=== PATIENT | female | born 1990 | race Caucasian/White ===

== ENCOUNTER 2017-12-04 09:13 | Emergency (ER) | payer BC ==
[2014-12-15 14:50] VITALS: Wt 80.7 kg
[~2017-12-04 09:13] MED LIST: ACET-2146 PO; ALB6.7R INH; BENZ57AE RC; BUPR-133 PO; BUPR-134 PO; CALC-520 PO; DOC100 PO; ESCI20TA38 PO; FERR-41 PO; IBUP-56 PO; IBUP800T37 PO; LOR5/325 PO; MULT-1032 PO; MULT-1038 PO; NIFE10CA38 PO; PER PO; RANI-375 PO
[2017-12-04 09:21] VITALS: BP 116/84
[2017-12-04] MEDS ORDERED: ARIP10TA4 PO (09:24)
[2017-12-04] MEDS ORDERED: CHOL10005 PO (09:24)
--- NOTE | 2017-12-04 09:28 | ER Report ---
History and Physical Time Seen By MD: 09:27 Hx. of Stated Complaint: SI X 1 WEEK HPI/ROS CHIEF COMPLAINT: Depression and suicidal ideation HISTORY OF PRESENT ILLNESS: Patient is a 27-year-old female with past medical history for depression with suicidal ideation as well as bipolar disorder. Dates that over the past few weeks specifically last 4 days she's had increasing thoughts of suicide. Last evening and came to a head when she was sitting in the [employer] parking lot thinking of buying a bunch of "sleeping pills" and taking them all at once. Patient presents with her today secondary to increasing depression with suicidal ideation and plan. She states that she is currently on Abilify 10 mg however this is not helping with her thoughts of depression and suicide. Patient states that she does not feel safe with herself home and feels as if she requires inpatient admission for suicidal thoughts and depression. Patient had a prior evaluation in 2014 after the delivery of her daughter. She recently gave this past April and is currently breast-feeding her son. REVIEW OF SYSTEMS: Constitutional: No fever, no chills. Eyes: No discharge. ENT: No sore throat. Cardiovascular: No chest pain, no palpitations. Respiratory: No cough, no shortness of breath. Gastrointestinal: No abdominal pain, no vomiting. Genitourinary: No hematuria. Musculoskeletal: No back pain. Skin: No rashes. Neurological: No headache. Psychiatric: Suicidal ideation with plan Allergies: Coded Allergies: pineapple (Verified Allergy, Mild, 12/04/17) tree nut (Verified Allergy, Unknown, 12/04/17) Home Meds Reported Medications Vitamin E Mixed (VITAMIN E) 100 Unit Tablet, PO 12/04/17 Cholecalciferol (Vitamin D3) (VITAMIN D3) 1,000 Unit Tablet, 1200 UNIT PO DAILY, TAB 12/04/17 Multivitamin W/Iron, Minerals (FLINTSTONES COMPLETE) 1 Each Tab.chew, 1 EACH PO DAILY, TAB.CHEW 12/16/14 Discontinued Reported Medications Aripiprazole (ABILIFY) 10 Mg Tablet, 10 MG PO QDAY, TAB 12/04/17 Bupropion Hcl (WELLBUTRIN SR) 100 Mg Tablet.er, 100 MG PO QDAY, TAB 12/16/14 Bupropion Hcl (BUPROPION HCL SR) 100 Mg Tablet.er, 100 MG PO QDAY, TAB 12/15/14 Multivitamin (FLINTSTONES) 1 Each Tab.chew, 1 EACH PO, #1 TAB.CHEW 04/02/13 Discontinued Scripts Ferrous Sulfate (FERROUS SULFATE) 325 Mg Tablet.dr, 1 TAB PO BID, #60 TAB 1 Refill Prov:MELI MALLORY MD 09/19/14 Ibuprofen (IBUPROFEN) 800 Mg Tab, 800 MG PO Q8H PRN for pain, #40 TAB 0 Refills Prov:MELI MALLORY MD 09/19/14 Past Medical/Surgical History Past medical history for depression with suicidal ideation seen by behavioral medicine in 2015. History of 2 prior vaginal deliveries. History of appendectomy. Hx Smoking: No Smoking Status: Never Smoker Exposure to Second Hand Smoke?: No Hx Substance Use Disorder: No Hx Alcohol Use: Yes (occasionaly) Constitutional Vital Sign - Last 24 Hours 12/04/17 09:21 Temp 98.3 Pulse 84 Resp 18 B/P (MAP) 116/84 Pulse Ox 96 O2 Delivery Room Air Physical Exam General/Constitutional: Patient is awake, alert, nontoxic and in no acute respiratory distress. Head: Normocephalic and atraumatic. Eyes: Conjunctival clear, Pupils are equal and reactive to light. Extraocular muscles are intact and symmetrical. Sclera are clear and anicteric. Ears:External canals are clear. Tympanic membranes are clear with normal landmarks and light reflex. Nares: No rhinorrhea or bleeding. Turbinates are pink and moist. Oropharyngeal: Mucous membranes are moist Neck: Supple, no adenopathy. Cardiovascular: Heart is regular rate and rhythm without audible murmurs, rubs or gallops. Pulmonary: Lungs are clear to auscultation bilaterally. There are no wheezes, rales, or rhonchi. Chest rise is symmetrical Abdomen: Soft, nontender, no guarding or peritoneal signs. Extremities: No gross deformities, No peripheral cyanosis. Able to move all 4 extremities. Neuro: Alert and oriented X3, Cranial nerves 2 thru 12 are intact and symmetrical. Patient has normal gait. Skin: No rashes, skin is warm dry and well perfused. Psychiatric: Patient with suicidal ideation and plan. Patient thought process is logical and goal-directed. Patient does not seem to be responding to any internal stimuli. Medical Decision Making Data Points Result Diagram: 12/04/1794412/04/17944 Laboratory Hematology Test 12/04/17 09:45 12/04/17 10:20 Red Blood Count 5.04 M/uL (4.17-5.56) Mean Corpuscular Volume 84.1 fL (80.0-96.0) Mean Corpuscular Hemoglobin 28.0 pg (26.0-33.0) Mean Corpuscular Hemoglobin Concent 33.3 g/dL (32.0-36.0) Red Cell Distribution Width 13.2 % (11.5-14.5) Mean Platelet Volume 9.2 fL (7.2-11.1) Neutrophils (%) (Auto) 57.3 % (39.4-72.5) Lymphocytes (%) (Auto) 34.2 % (17.6-49.6) Monocytes (%) (Auto) 7.0 % (4.1-12.4) Eosinophils (%) (Auto) 0.9 % (0.4-6.7) Basophils (%) (Auto) 0.6 % (0.3-1.4) Nucleated RBC Relative Count (auto) 0.0 /100WBC Neutrophils # (Auto) 3.6 K/uL (2.0-7.4) Lymphocytes # (Auto) 2.2 K/uL (1.3-3.6) Monocytes # (Auto) 0.4 K/uL (0.3-1.0) Eosinophils # (Auto) 0.1 K/uL (0.0-0.5) Basophils # (Auto) 0.0 K/uL (0.0-0.1) Nucleated RBC Absolute Count (auto) 0.00 K/uL Sodium Level 139 mmol/L (137-145) Potassium Level 4.2 mmol/L (3.5-5.0) Chloride Level 103 mmol/L (98-107) Carbon Dioxide Level 26 mmol/L (22-31) Blood Urea Nitrogen 16 mg/dl (7-18) Creatinine 0.70 mg/dl (0.52-1.04) Glomerular Filtration Rate Calc > 60.0 Random Glucose 105 mg/dl (75-110) Calcium Level 9.4 mg/dl (8.4-10.2) Magnesium Level 1.9 mg/dl (1.7-2.2) Total Bilirubin 0.3 mg/dl (0.2-1.3) Aspartate Amino Transf (AST/SGOT) 21 U/L (0-35) Alanine Aminotransferase (ALT/SGPT) 30 U/L (0-56) Alkaline Phosphatase 85 U/L (0-126) Total Protein 7.5 g/dl (6.3-8.2) Albumin 4.2 g/dl (3.5-5.0) Salicylates Level < 10 mg/L Salicylate Last Dose Date unk Acetaminophen Level < 10 ug/ml Serum Alcohol < 10 mg/dl Urine Color Straw Urine Clarity Clear Urine pH 7.0 pH (4.8-9.5) Urine Specific [place] 1.003 Urine Protein Negative mg/dL (NEGATIVE) Urine Glucose (UA) Negative mg/dL (NEGATIVE) Urine Ketones Negative mg/dL (NEGATIVE) Urine Blood Negative (NEGATIVE) Urine Nitrite Negative (NEGATIVE) Urine Bilirubin Negative (NEGATIVE) Urine Urobilinogen Negative mg/dL (0.2-1.9) Urine Leukocyte Esterase Negative (NEGATIVE) Urine RBC <1 /HPF (0-2/HPF) Urine WBC 2 /HPF (0-5/HPF) Urine Squamous Epithelial Cells Moderate /LPF (</=FEW) Urine Bacteria Negative /HPF (NONE-FEW) Urine Mucus None /HPF (NONE-FEW) Urine HCG, Qualitative Negative (NEGATIVE) Urine Opiates Screen Negative Urine Barbiturates Screen Negative Ur Tricyclic Antidepressants Screen Negative Urine Phencyclidine Screen Negative Urine Amphetamines Screen Negative Urine Benzodiazepines Screen Negative Urine Cocaine Screen Negative Urine Cannabinoids Screen Negative Chemistry Test 12/04/17 09:45 12/04/17 10:20 White Blood Count 6.4 k/uL (4.5-11.0) Red Blood Count 5.04 M/uL (4.17-5.56) Hemoglobin 14.1 g/dL (12.0-16.0) Hematocrit 42.4 % (34.0-47.0) Mean Corpuscular Volume 84.1 fL (80.0-96.0) Mean Corpuscular Hemoglobin 28.0 pg (26.0-33.0) Mean Corpuscular Hemoglobin Concent 33.3 g/dL (32.0-36.0) Red Cell Distribution Width 13.2 % (11.5-14.5) Platelet Count 232 K/uL (150-450) Mean Platelet Volume 9.2 fL (7.2-11.1) Neutrophils (%) (Auto) 57.3 % (39.4-72.5) Lymphocytes (%) (Auto) 34.2 % (17.6-49.6) Monocytes (%) (Auto) 7.0 % (4.1-12.4) Eosinophils (%) (Auto) 0.9 % (0.4-6.7) Basophils (%) (Auto) 0.6 % (0.3-1.4) Nucleated RBC Relative Count (auto) 0.0 /100WBC Neutrophils # (Auto) 3.6 K/uL (2.0-7.4) Lymphocytes # (Auto) 2.2 K/uL (1.3-3.6) Monocytes # (Auto) 0.4 K/uL (0.3-1.0) Eosinophils # (Auto) 0.1 K/uL (0.0-0.5) Basophils # (Auto) 0.0 K/uL (0.0-0.1) Nucleated RBC Absolute Count (auto) 0.00 K/uL Glomerular Filtration Rate Calc > 60.0 Calcium Level 9.4 mg/dl (8.4-10.2) Magnesium Level 1.9 mg/dl (1.7-2.2) Total Bilirubin 0.3 mg/dl (0.2-1.3) Aspartate Amino Transf (AST/SGOT) 21 U/L (0-35) Alanine Aminotransferase (ALT/SGPT) 30 U/L (0-56) Alkaline Phosphatase 85 U/L (0-126) Total Protein 7.5 g/dl (6.3-8.2) Albumin 4.2 g/dl (3.5-5.0) Salicylates Level < 10 mg/L Salicylate Last Dose Date unk Acetaminophen Level < 10 ug/ml Serum Alcohol < 10 mg/dl Urine Color Straw Urine Clarity Clear Urine pH 7.0 pH (4.8-9.5) Urine Specific [place] 1.003 Urine Protein Negative mg/dL (NEGATIVE) Urine Glucose (UA) Negative mg/dL (NEGATIVE) Urine Ketones Negative mg/dL (NEGATIVE) Urine Blood Negative (NEGATIVE) Urine Nitrite Negative (NEGATIVE) Urine Bilirubin Negative (NEGATIVE) Urine Urobilinogen Negative mg/dL (0.2-1.9) Urine Leukocyte Esterase Negative (NEGATIVE) Urine RBC <1 /HPF (0-2/HPF) Urine WBC 2 /HPF (0-5/HPF) Urine Squamous Epithelial Cells Moderate /LPF (</=FEW) Urine Bacteria Negative /HPF (NONE-FEW) Urine Mucus None /HPF (NONE-FEW) Urine HCG, Qualitative Negative (NEGATIVE) Urine Opiates Screen Negative Urine Barbiturates Screen Negative Ur Tricyclic Antidepressants Screen Negative Urine Phencyclidine Screen Negative Urine Amphetamines Screen Negative Urine Benzodiazepines Screen Negative Urine Cocaine Screen Negative Urine Cannabinoids Screen Negative Toxicology Test 12/04/17 09:45 12/04/17 10:20 Salicylates Level < 10 mg/L Salicylate Last Dose Date unk Acetaminophen Level < 10 ug/ml Serum Alcohol < 10 mg/dl Urine Opiates Screen Negative Urine Barbiturates Screen Negative Ur Tricyclic Antidepressants Screen Negative Urine Phencyclidine Screen Negative Urine Amphetamines Screen Negative Urine Benzodiazepines Screen Negative Urine Cocaine Screen Negative Urine Cannabinoids Screen Negative Urinalysis Test 12/04/17 10:20 Urine Color Straw Urine Clarity Clear Urine pH 7.0 pH (4.8-9.5) Urine Specific [place] 1.003 Urine Protein Negative mg/dL (NEGATIVE) Urine Glucose (UA) Negative mg/dL (NEGATIVE) Urine Ketones Negative mg/dL (NEGATIVE) Urine Blood Negative (NEGATIVE) Urine Nitrite Negative (NEGATIVE) Urine Bilirubin Negative (NEGATIVE) Urine Urobilinogen Negative mg/dL (0.2-1.9) Urine Leukocyte Esterase Negative (NEGATIVE) Urine RBC <1 /HPF (0-2/HPF) Urine WBC 2 /HPF (0-5/HPF) Urine Squamous Epithelial Cells Moderate /LPF (</=FEW) Urine Bacteria Negative /HPF (NONE-FEW) Urine Mucus None /HPF (NONE-FEW) Urine HCG, Qualitative Negative (NEGATIVE) ED Course/Re-evaluation ED Course 12/04/2017 9:38:06 am patient here for voluntary admission for suicidal ideation with plan. We'll perform medical screening exam and if negative will call behavioral medicine. Decision to Disposition Date: Dec 04, 2017 Decision to Disposition Time: 11:09 Depart Departure Latest Vital Signs Vital Signs Date Time Temp Pulse Resp B/P (MAP) Pulse Ox O2 Delivery O2 Flow Rate FiO2 12/04/17 09:21 98.3 84 18 116/84 96 Room Air Impression: Primary Impression: Suicidal ideations Condition: Stable Disposition: XFER TO [facility] (to Dr Wharton) Referrals: SWETHA BAKER PA-C (PCP) ISH PRITCHARD MD Dec 04, 2017 09:28
[2017-12-04 09:55] LABS: PLATELET COUNT, AUTOMATED 232 K/uL (150-450)
[2017-12-04] MEDS ORDERED: VITA100T4 PO (13:14)
== END 2017-12-04 12:04 ==
LOC: ER 09:52
DX: R45.851 Suicidal ideations (principal)
CPT/HCPCS: 36415; 80305; 80320; 80329; 81001; 81025; 82040; 82247; 82310; 82374; 82435; 82565; 82947; 83735; 84075; 84132; 84155; 84295; 84443; 84450; 84460; 84520; 85025; 99284

== ENCOUNTER 2017-12-04 11:10 | Inpatient (IN) | payer BC ==
[2014-12-15 14:50] VITALS: Ht 167.6 cm; Wt 88.5 kg
[~2017-12-04] VITALS: Ht 167.6 cm; Wt 88.5 kg
[~2017-12-04 11:10] MED LIST changes: +ARIP10TA4 PO; +CHOL10005 PO
[2017-12-04 12:00] VITALS: BP 116/70
[2017-12-04] MEDS ORDERED: MAG HYD/AL HYD/SIMETH 30ML UDC PO PRN (12:00)
[2017-12-04] MEDS: ACETAMINOPHEN 325 MG TAB PO PRN (12:27)
[2017-12-04] MEDS ORDERED: VITA100T4 PO (13:14)
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
[2017-12-04 18:43] VITALS: BP 112/74
[2017-12-04] MEDS ORDERED: LITHIUM CARBONATE 450 MG TABCR PO ONE (21:00)
[2017-12-05 04:17] VITALS: BP 124/70
[2017-12-05] MEDS: ACETAMINOPHEN 325 MG TAB PO PRN (08:04)
[2017-12-05] MEDS: MULTIVITAMINS PO SCH (08:30)
[2017-12-05] MEDS: CHOLECALCIFEROL 1000 UNIT TAB PO SCH (08:31)
[2017-12-05 13:46] VITALS: BP 104/72
--- NOTE | 2017-12-05 16:07 | B[facility] Progress Note ---
S - Subjective Progress Notes Subjective Pt seen in conference room with team. Pt is doing OK today. Last night she had some racing thoughts before sleep, then a middle of night awakening when she got up and thought she had an olfactory hallucination of the smell of bodies. She spoke with the nurse and felt better and went back to sleep for 4 more hours. No further such symptoms today. She tolerated first dose of lithium 450 mg well without n/v/d. Today we discussed more about lithium therapy, signs of lithium toxicity, how lithium can affect thyroid and kidneys, and what to watch out for in terms of lithium toxicity with her infant. She understands that any signs of GI upset, excess irritability, excess sedation baby should be seen by Dr. Rodriguez or go to ER. We got in touch with Leann Culver, pt's outpatient provider who is also in agreement with restart of lithium. Will increase Li to 750 mg tonight. Will check t3 and t4 since TSH mildly elevated at 5.09. Suicidal Ideation: None Homicidal Ideation: None S - Objective Physical Exam Vital Signs Vital Signs 12/05/17 13:46 Temp 98.2 Pulse 94 Resp 16 B/P (MAP) 104/72 (83) Pulse Ox 96 O2 Delivery Room Air Muscle Strength and Tone: WNL Gait and Station: Steady [facility] Medications Reviewed: Side Effects, Benefits of Medication, Risks Allergies Reviewed: Yes Mental Status Exam General Appearance: Casual, Well Groomed, Good Eye Contact, Cooperative, Polite, Good Interaction Speech: Clear, Spontaneous, Normal Rate, Normal Rhythm, Normal Volume, Normal Tone Mood: Other (mildly labile) Affect: Calm, Neutral, Anxious Thought Process: Organized, Logical, Goal Directed Thought Content: No Suicidal Ideation, No Homicidal Ideation, No Delusions, No Auditory Halllucinations, No Visual Hallucinations, No Thought Broadcasting, No Ideas of Reference, No Obsessions, No Compulsions, No Other Sensorium: Clear Cognition: Alert & Oriented-Person, Alert & Oriented-Place, Alert & Oriented- Time, [id number] Memory: Immediate, Recent, Remote Intelligence: Average Insight Judgment: Fair [facility] Assessment and Plan [id number] Encounter Date: Dec 05, 2017 [id number] Encounter Time: 09:00 [facility] Plan: Admit to Unit, Necessary Precautions, Individual/Group Therapy, Admin/Titrate Meds, Educate Patient Tobacco Medications: Not Appropriate Condition Multpiple Antipsychotics Used: No Problems: (1) Bipolar disorder, rapid cycling MAXIM LATIF MD Dec 05, 2017 16:07
[2017-12-05] MEDS ORDERED: BISACODYL 5 MG TABEC PO PRN (16:20)
[2017-12-05 20:54] VITALS: BP 115/82
[2017-12-05] MEDS ORDERED: LITHIUM CARBONATE 450 MG TABCR PO SCH (21:00)
[2017-12-05] MEDS ORDERED: LITHIUM CARBONATE 300 MG TABCR PO SCH (21:00)
[2017-12-06 02:48] VITALS: BP 101/71
[2017-12-06] MEDS: ACETAMINOPHEN 325 MG TAB PO PRN (07:50)
[2017-12-06] MEDS: CHOLECALCIFEROL 1000 UNIT TAB PO SCH (08:26)
[2017-12-06] MEDS: MULTIVITAMINS PO SCH (08:26)
[2017-12-06 08:43] VITALS: BP 113/68
[2017-12-06] MEDS ORDERED: PSYLLIUM 28% 1 PACKET PO SCH (09:00)
[2017-12-06] MEDS ORDERED: LITH300T18 PO (09:30)
[2017-12-06] MEDS ORDERED: LITC450 PO (09:30)
[2017-12-06] MEDS ORDERED: BISA-229 PO (09:46)
[2017-12-06] MEDS ORDERED: PSYL3.4P2 PO (09:47)
--- NOTE | 2017-12-07 09:51 | SCHAAF DISCHARGE ---
DATE OF ADMISSION: December 04, 2017 DATE OF DISCHARGE: December 06, 2017 ATTENDING PHYSICIAN John Luo MD Patient was seen at approximately 0900 hours on December 06, 2017 for note concerning this dictation. FINAL DIAGNOSES Bipolar 1 disorder, rapid cycling, recent mixed episode, resolved. Patient has supportive family. REASON FOR ADMISSION This is a very polite and cooperative 27-year-old female who suffers from longstanding history of mood disorder. The patient historically has been stabilized on [place] in relatively low dose. However, patient experiencing the of her third child earlier this spring. Patient was off [place] after of child. The patient attempted to titrate Abilify in place of [place] for mood stability. The patient experienced negative symptoms including some urinary retention, possibly related. Please see History and Physical for full details. The patient experienced suicidal ideations and was brought to the emergency room and admitted without incident. After long discussion of risks versus benefits and on this patient who has now had a tubal ligation, it was thought that patient would best be suited for return to [place] at this time. [place] was started and titrated. Patient's mood continued to improve. No suicidal or homicidal behaviors were seen on the Unit and ideation of suicide resolved. PHYSICAL EXAMINATION Please see emergency room note. This is a pleasant 27-year-old female who appears stated age. No bizarre mannerisms or tics. No medical distress. Patient interacting well in the emergency room. Patient brought to Behavioral Health Unit without incident. Vital signs at the time of admission: Temperature 98.3, pulse 84], respiratory rate 18, blood pressure 116/84 and pulse oximetry 96% on room air. Vital signs at the time of discharge: Temperature 97.9, pulse 106, respiratory rate 16, blood pressure 113/68 and pulse oximetry 99% on room air. LABORATORY DATA TSH noted to be 2.81 and in normal range. CBC unremarkable. CMP unremarkable. Urinalysis unremarkable overall. screen negative. Toxicology screen negative with a nondetectable serum alcohol level at time of admission. MENTAL STATUS EXAMINATION GENERAL APPEARANCE, BEHAVIOR AND ATTITUDE: This is a cooperative and polite 27-year-old female. At time of discharge, interacting well with this provider and other treatment team staff. No periods of tearfulness, making good eye contact. No bizarre mannerisms or tics. SPEECH: Within normal limits. Regular rate, rhythm, volume and tone. MOOD: Described as good. AFFECT: Full and mood-congruent. THOUGHT PROCESSES: Goal-directed, logical. Patient deciding when she would return to work. No loose associations or flight of ideas. THOUGHT CONTENT: Free of auditory or visual hallucinations, ideas of reference, thought broadcastings, delusions, obsessions or compulsions. The patient adamantly denying suicidal or homicidal ideation at time of discharge. SENSORIUM: Clear. COGNITION: Alert and oriented to person, place, time and situation. MEMORY: Immediate, recent and remote was estimated intact. INTELLIGENCE: Average to above, based on interview. INSIGHT AND JUDGMENT: Considered grossly intact and appropriate for ongoing outpatient management. RESULTS OF TESTING Imaging: None. Laboratory data: See above. CONSULTATIONS None. TREATMENT Patient received medications, participated in individual and group therapy. HOSPITAL COURSE The patient was admitted without incident. The patient took a very active role in her treatment. [place] was started and titrated to level that she had been on in the past and did well. The patient continued to improve. Patient agreed to follow up closely with outpatient provider for [place] level regarding her . CONDITION OF PATIENT ON DISCHARGE Stable. Considered a minimal risk to herself or others, appropriate for ongoing outpatient care. DISPOSITION The patient was discharged to home. She will follow up with Nagi Culver with [place] level in two weeks with outpatient provider. 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 Crisis line was given should symptoms return. The patient will remain on controlled-release [place] 750 mg p.o. at bedtime, Metamucil one packet daily, multivitamin with minerals daily, vitamin D3 4000 international units daily, Dulcolax as needed for constipation. The patient will call Crisis Line if symptoms return. The risks, benefits and alternatives of the above discharge plan were discussed. Informed consent was given to proceed with the above discharge plan by this competent patient. MARCO
== END 2017-12-06 10:12 | disposition home or self-care (01) | DRG 885 ==
LOC: BHS 11:10
PROVIDERS: ADMIT Psychiatry & Neurology Psychiatry; ATTEND Psychiatry & Neurology Psychiatry
DX: F31.60 Bipolar disorder, current episode mixed, unspecified (principal); R45.851 Suicidal ideations; F42.8 Other obsessive-compulsive disorder; Z81.1 Family history of alcohol abuse and dependence; Z81.8 Family history of other mental and behavioral disorders; Z88.8 Allergy status to other drugs, medicaments and biological substances; Z91.410 Personal history of adult physical and sexual abuse; Z91.411 Personal history of adult psychological abuse

== ENCOUNTER 2017-12-20 20:54 | Emergency (ER) | payer BC ==
[2014-12-15 14:50] VITALS: Wt 91.6 kg
[~2017-12-20 20:54] MED LIST changes: +BISA-229 PO; +LITC450 PO; +LITH300T18 PO; +PSYL3.4P2 PO; +VITA100T4 PO
--- NOTE | 2017-12-20 21:22 | ER Report ---
History and Physical Time Seen By MD: 21:22 Hx. of Stated Complaint: possible lithium toxicity HPI/ROS CHIEF COMPLAINT: concern about [place] toxicity. HISTORY OF PRESENT ILLNESS: This is a 27 year old female. She was sent to the ER [facility] by urgent care for concern about lithium toxicity. She has been having dizziness and headache with some eye pressure. She denies vision changes with this. She has had weight gain and feels like she is retaining fluid and swelling in legs/feet. No fever or chills. No cough, but occasionally feels short of breath. No chest pain. Normal bowel and bladder function. Recently was started on [place] for bipolar and was on 400mg + 350mg tablet extended release once a day. Called behavioral health and was not getting relief, so this was increased to 400mg +350mg + 400mg once a day. This was a few days ago and after this increase is when she started getting symptoms. Urgent care had performed an EKG, urinalysis and HCG which were normal. Allergies: Coded Allergies: pineapple (Verified Allergy, Mild, 12/20/17) tree nut (Verified Allergy, Unknown, 12/20/17) Home Meds Reported Medications Psyllium Husk/Aspartame (METAMUCIL FIBER SINGLES PACKET) 3.4 Gm Powd.pack, 3.4 GM PO DAILY 12/06/17 Bisacodyl (DULCOLAX) 5 Mg Tablet.dr, 5 MG PO QHS PRN for CONSTIPATION 12/06/17 [place] Carbonate (LITHIUM CARBONATE) 450 Mg Tabcr, 450 MG PO QHS Take a total of 750mg of [place] QHS. 12/06/17 [place] Carbonate (LITHIUM CARBONATE) 300 Mg Tablet, 300 MG PO QHS Take a total of 750mg of [place] QHS. 12/06/17 Vitamin E Mixed (VITAMIN E) 100 Unit Tablet, PO 12/04/17 Cholecalciferol (Vitamin D3) (VITAMIN D3) 1,000 Unit Tablet, 4000 UNIT PO DAILY, TAB 12/04/17 Discontinued Reported Medications Multivitamin W/Iron, Minerals ([place]ON[place] COMPLETE) 1 Each Tab.chew, 1 EACH PO DAILY, TAB.CHEW 12/16/14 Reviewed Nurses Notes: Yes Hx Smoking: No Smoking Status: Never Smoker Exposure to Second Hand Smoke?: No Hx Substance Use Disorder: No Hx Alcohol Use: Yes Constitutional Vital Sign - Last 24 Hours 12/20/17 12/20/17 12/20/17 12/20/17 20:59 21:09 21:24 21:30 Temp 98.7 Pulse 80 75 84 Resp 16 B/P (MAP) 136/95 130/82 (98) Pulse Ox 95 97 94 O2 Delivery Room Air 12/20/17 12/20/17 12/20/17 12/20/17 21:51 21:54 22:00 22:09 Pulse 75 74 B/P (MAP) 109/82 (91) 109/79 (89) Pulse Ox 93 93 12/20/17 12/20/17 12/20/17 12/20/17 22:24 22:30 22:39 22:44 Pulse 74 74 72 B/P (MAP) 118/80 (93) Pulse Ox 94 94 93 12/20/17 12/20/17 12/20/17 12/20/17 22:59 23:00 23:14 23:19 Pulse 67 73 73 B/P (MAP) 113/76 (88) Pulse Ox 93 93 93 Intake and Output 12/20/17 12/20/17 12/21/17 15:00 23:00 07:00 Intake Total 1000 ml Balance 1000 ml Physical Exam General Appearance: The patient is alert. No acute distress. Eyes: Pupils are equal, round. No pallor, injection or icterus. ENT: Mucous membranes are moist. Normal oral mucosa. Posterior oropharynx is normal. Neck: Supple and non tender. Respiratory: Lungs are clear to auscultation. Cardiovascular: Regular rate and rhythm. No murmurs, gallops or rubs. Normal capillary refill. No pitting edema, but perhaps a little swollen bilateral and equal. Gastrointestinal: Abdomen is soft and non tender. Nondistended. Normal active bowel sounds. Neurological: Alert and oriented x3. No focal neurologic deficits Skin: Warm and dry. Musculoskeletal: Extremities are nontender. No tenderness in palpation of the back/spine. DIFFERENTIAL DIAGNOSIS: After history and physical exam, differential diagnosis was considered for patient with symptoms concerning for lithium toxicity. Medical Decision Making Data Points Result Diagram: 12/20/17210812/20/172108 Laboratory Hematology Test 12/20/17 21:09 Red Blood Count 5.18 M/uL (4.17-5.56) Mean Corpuscular Volume 82.2 fL (80.0-96.0) Mean Corpuscular Hemoglobin 28.0 pg (26.0-33.0) Mean Corpuscular Hemoglobin Concent 34.0 g/dL (32.0-36.0) Red Cell Distribution Width 13.4 % (11.5-14.5) Mean Platelet Volume 9.2 fL (7.2-11.1) Neutrophils (%) (Auto) 61.8 % (39.4-72.5) Lymphocytes (%) (Auto) 29.8 % (17.6-49.6) Monocytes (%) (Auto) 7.2 % (4.1-12.4) Eosinophils (%) (Auto) 0.9 % (0.4-6.7) Basophils (%) (Auto) 0.3 % (0.3-1.4) Nucleated RBC Relative Count (auto) 0.1 /100WBC Neutrophils # (Auto) 6.7 K/uL (2.0-7.4) Lymphocytes # (Auto) 3.2 K/uL (1.3-3.6) Monocytes # (Auto) 0.8 K/uL (0.3-1.0) Eosinophils # (Auto) 0.1 K/uL (0.0-0.5) Basophils # (Auto) 0.0 K/uL (0.0-0.1) Nucleated RBC Absolute Count (auto) 0.01 K/uL Sodium Level 140 mmol/L (137-145) Potassium Level 3.7 mmol/L (3.5-5.0) Chloride Level 103 mmol/L (98-107) Carbon Dioxide Level 26 mmol/L (22-31) Blood Urea Nitrogen 17 mg/dl (7-18) Creatinine 0.80 mg/dl (0.52-1.04) Glomerular Filtration Rate Calc > 60.0 Random Glucose 99 mg/dl (75-110) Calcium Level 9.6 mg/dl (8.4-10.2) Total Bilirubin 0.4 mg/dl (0.2-1.3) Aspartate Amino Transf (AST/SGOT) 33 U/L (0-35) Alanine Aminotransferase (ALT/SGPT) 40 U/L (0-56) Alkaline Phosphatase 84 U/L (0-126) Total Protein 7.9 g/dl (6.3-8.2) Albumin 4.5 g/dl (3.5-5.0) [place] Level 0.5 mmol/L (0.6-1.2) Chemistry Test 12/20/17 21:09 White Blood Count 10.8 k/uL (4.5-11.0) Red Blood Count 5.18 M/uL (4.17-5.56) Hemoglobin 14.5 g/dL (12.0-16.0) Hematocrit 42.6 % (34.0-47.0) Mean Corpuscular Volume 82.2 fL (80.0-96.0) Mean Corpuscular Hemoglobin 28.0 pg (26.0-33.0) Mean Corpuscular Hemoglobin Concent 34.0 g/dL (32.0-36.0) Red Cell Distribution Width 13.4 % (11.5-14.5) Platelet Count 285 K/uL (150-450) Mean Platelet Volume 9.2 fL (7.2-11.1) Neutrophils (%) (Auto) 61.8 % (39.4-72.5) Lymphocytes (%) (Auto) 29.8 % (17.6-49.6) Monocytes (%) (Auto) 7.2 % (4.1-12.4) Eosinophils (%) (Auto) 0.9 % (0.4-6.7) Basophils (%) (Auto) 0.3 % (0.3-1.4) Nucleated RBC Relative Count (auto) 0.1 /100WBC Neutrophils # (Auto) 6.7 K/uL (2.0-7.4) Lymphocytes # (Auto) 3.2 K/uL (1.3-3.6) Monocytes # (Auto) 0.8 K/uL (0.3-1.0) Eosinophils # (Auto) 0.1 K/uL (0.0-0.5) Basophils # (Auto) 0.0 K/uL (0.0-0.1) Nucleated RBC Absolute Count (auto) 0.01 K/uL Glomerular Filtration Rate Calc > 60.0 Calcium Level 9.6 mg/dl (8.4-10.2) Total Bilirubin 0.4 mg/dl (0.2-1.3) Aspartate Amino Transf (AST/SGOT) 33 U/L (0-35) Alanine Aminotransferase (ALT/SGPT) 40 U/L (0-56) Alkaline Phosphatase 84 U/L (0-126) Total Protein 7.9 g/dl (6.3-8.2) Albumin 4.5 g/dl (3.5-5.0) [place] Level 0.5 mmol/L (0.6-1.2) Toxicology Test 12/20/17 21:09 [place] Level 0.5 mmol/L (0.6-1.2) EKG/Imaging EKG Interpretation Looked at the EKG from urgent care, sinus rhythm, 76, No ST elevation or depression, normal QRS and QT Imaging CT Head without contrast Indication: Headache. Comparison: None available Technique: Axial CT images were obtained through the brain from the skull base to the vertex without administration of IV contrast. Reformatted coronal and sagittal images were also obtained. One of the following dose optimization techniques was utilized in the performance of this exam: automated exposure control; adjustment of the mA and/or kV according to the patient's size; or use of an iterative reconstruction technique. Specific details can be referenced in the facility's radiology CT exam operational policy. Findings: No evidence of mass, mass effect, or midline shift. No acute intracranial hemorrhage or acute territorial infarction. No extra-axial fluid collection or hydrocephalus. No abnormal density. Schultz/white matter differentiation appears normal. Bony structures show no fractures or lesions. Mild leftward deviation nasal septum. The visualized paranasal sinuses and mastoid air cells are clear. IMPRESSION: 1. No acute intracranial abnormality. Report Dictated By: Zackery Vital at 12/20/2017 9:56 PM ED Course/Re-evaluation Clinical Indication for ER IV: IV Access ED Course [place] level is actually low 0.5. Labs otherwise negative. CT head was done to look for other causes of headache and symptoms and was negative. Recommended going down to the 400mg + 350mg level and follow-up with primary care. Can consider compression stocking and leg elevation for leg edema. Tylenol or other over the counter meds for headache. Follow-up to with her regular doctor to discuss medications and changes as needed. Decision to Disposition Date: Dec 20, 2017 Decision to Disposition Time: 23:17 Depart Departure Latest Vital Signs Vital Signs Date Time Temp Pulse Resp B/P (MAP) Pulse Ox O2 Delivery O2 Flow Rate FiO2 12/20/17 23:19 73 93 12/20/17 23:00 113/76 (88) 12/20/17 20:59 98.7 16 Room Air Impression: Primary Impression: Medication side effects Condition: Improved Disposition: HOME OR SELF-CARE Referrals: SWETHA BAKER PA-C (PCP) Patient Instructions: [place] Toxicity (ED) Additional Instructions: Labs did not show lithium toxicity. In fact, the lithium level was low tonight. We still recommend going back down to the 750mg dose once a day. Follow-up with your regular doctor to discuss side effects; as well as the need for additional medications. RANDI PÉREZ MD Dec 20, 2017 21:22
[2017-12-20 21:38] LABS: PLATELET COUNT, AUTOMATED 285 K/uL (150-450)
[2017-12-20] MEDS ORDERED: NS(*) 0.9% 1000 ML BAG 1,000 ML IV ONE (21:45)
--- NOTE | 2017-12-20 22:05 | RADIOLOGY IMAGING REPORT ---
FACILITY: [facility] PATIENT NAME: Johnna Perez : 1990 MR: [id number] V: [id number] EXAM DATE: [id number] ORDERING PHYSICIAN: RANDI PÉREZ TECHNOLOGIST: Location: [facility] Patient: Johnna Perez : 1990 Visit/Account:[id number] Date of Sevice: 12/20/2017 CT Head without contrast Indication: Headache. Comparison: None available Technique: Axial CT images were obtained through the brain from the skull base to the vertex without administration of IV contrast. Reformatted coronal and sagittal images were also obtained. One of the following dose optimization techniques was utilized in the performance of this exam: autom ated exposure control; adjustment of the mA and/or kV according to the patient's size; or use of an i terative reconstruction technique. Specific details can be referenced in the facility's radiology CT exam operational policy. Findings: No evidence of mass, mass effect, or midline shift. No acute intracranial hemorrhage or acute territorial infarction. No extra-axial fluid collection or hydrocephalus. No abnormal density. Schultz/white matter differentiat ion appears normal. Bony structures show no fractures or lesions. Mild leftward deviation nasal septum. The visualized paranasal sinuses and mastoid air cells are clear. IMPRESSION: 1. No acute intracranial abnormality. Report Dictated By: Zackery Vital at 12/20/2017 9:56 PM Report E-Signed By: Zackery Vital at 12/20/2017 10:01 PM WSN:[id number]
[2017-12-20 23:00] VITALS: BP 113/76
== END 2017-12-20 23:23 | disposition home or self-care (01) ==
LOC: ER 21:14
DX: T50.995A Adverse effect of other drugs, medicaments and biological substances, initial encounter (principal)
CPT/HCPCS: 70450; 80178; 84443; 85025; 96360; 96361; 99284; J7030; 82040; 82247; 82310; 82374; 82435; 82565; 82947; 84075; 84132; 84155; 84295; 84450; 84460; 84520

== ENCOUNTER 2018-01-16 11:22 | Emergency (ER) | payer BC ==
[2014-12-15 14:50] VITALS: Wt 90.7 kg
[2018-01-16 11:30] VITALS: BP 107/66
--- NOTE | 2018-01-16 11:34 | ER Report ---
History and Physical Time Seen By MD: 11:28 HPI/ROS CHIEF COMPLAINT: Left ankle pain HISTORY OF PRESENT ILLNESS: 27-year-old female patient presents to emergency room with complaint of left ankle pain. Patient states that she slipped and fell down stairs at her home. Patient states that when that happened that she felt her ankle turned to 90. She states she has significant amounts of pain to the lateral malleolus. She states the pain seems to radiate up the fibula as well as down to the foot. Patient states she's not been able to ambulate. She denies any numbness tingling to her toes. She states she is not taking any pain medication. She rates her pain currently a 9 out of 10. REVIEW OF SYSTEMS: Respiratory: No cough, no dyspnea. Cardiovascular: No chest pain, no palpitations. Gastrointestinal: No vomiting, no abdominal pain. Musculoskeletal: As noted above Allergies: Coded Allergies: pineapple (Verified Allergy, Mild, 12/20/17) tree nut (Verified Allergy, Unknown, 12/20/17) Home Meds Reported Medications Aripiprazole (ABILIFY) 10 Mg Tablet, 10 MG PO QDAY, TAB 01/16/18 [place] Carbonate (LITHIUM CARBONATE) 300 Mg Tablet, 1200 MG PO QHS 12/06/17 Vitamin E Mixed (VITAMIN E) 100 Unit Tablet, PO 12/04/17 Cholecalciferol (Vitamin D3) (VITAMIN D3) 1,000 Unit Tablet, 4000 UNIT PO DAILY, TAB 12/04/17 Discontinued Reported Medications Psyllium Husk/Aspartame (METAMUCIL FIBER SINGLES PACKET) 3.4 Gm Powd.pack, 3.4 GM PO DAILY 12/06/17 Bisacodyl (DULCOLAX) 5 Mg Tablet.dr, 5 MG PO QHS PRN for CONSTIPATION 12/06/17 [place] Carbonate (LITHIUM CARBONATE) 450 Mg Tabcr, 450 MG PO QHS Take a total of 750mg of [place] QHS. 12/06/17 Discontinued Scripts Oxycodone Hcl/Acetaminophen (PERCOCET 5-325 MG TABLET) 1 Each Tablet, 1 EACH PO Q4-6H PRN for PAIN, #20 TAB Prov:MAXIMO WRIGHT INSURANCE CLAIM AUDITOR 01/16/18 Past Medical/Surgical History Patient has a past medical history of hypothyroidism, eczema, depression, anxiety, OCD, bipolar. Patient has a surgical history of was some teeth removed, tubal ligation, appendectomy. Patient has a family medical history of cancer, CAD. Reviewed Nurses Notes: Yes Hx Smoking: No Smoking Status: Never Smoker Exposure to Second Hand Smoke?: No Hx Substance Use Disorder: No Hx Alcohol Use: Yes Constitutional Vital Sign - Last 24 Hours 01/16/18 11:30 Temp 98.4 Pulse 74 Resp 18 B/P (MAP) 107/66 Pulse Ox 93 O2 Delivery Room Air Physical Exam General Appearance: The patient is alert, has no immediate need for airway protection and no current signs of toxicity. Respiratory: Chest is non tender, lungs are clear to auscultation. Cardiac: regular rate and rhythm Gastrointestinal: Abdomen is soft and non tender, no masses, bowel sounds normal. Musculoskeletal: Neck: Neck is supple and non tender. Extremities have full range of motion and are non tender. Patient does have noticeable swelling to the left lateral malleolus, she has tenderness to the fibula just proximal to that. There is no tenderness to the fibula up by the knee. Patient does have pain down by the fifth metatarsal. Skin: No rashes or lesions. DIFFERENTIAL DIAGNOSIS: After history and physical exam differential diagnosis was considered for sprain, fracture, dislocation. Medical Decision Making EKG/Imaging Imaging FOOT 3 VIEW LEFT, ANKLE 3 VIEW MIN LEFT Indication: Left foot and ankle pain after fall. Comparison: None Available Findings: 3 views of the left foot and left ankle were obtained. There is non-/fracture the distal left fibula and the medial malleolus. On the lateral view of the ankle there is a mildly displaced fracture the posterior malleolus. Syndesmosis appears to be intact. The talus shows no indication of fracture or bony lesion. No other indication of fracture to ankle or foot. No dislocations, bony lesions or periosteal abnormality. Soft tissues show swelling. No radiopaque foreign body. IMPRESSION: 1. Trimalleolar fracture of the left ankle. No fracture of the left foot. Report Dictated By: Zackery Vital at 01/16/2018 12:29 PM Report E-Signed By: Zackery Vital at 01/16/2018 12:44 PM ED Course/Re-evaluation ED Course Patient was admitted to an exam room, history and physical were obtained. Differential diagnoses were considered. On examination patient has significant swelling to the lateral malleolus, she has tenderness to the fibula. Patient had good sensation was able to move her toes. His done of the ankle and the foot as patient did have some tenderness over the fifth metatarsal. X-ray of the right ankle showed a trimalleolar fracture, however did maintain good alignment. There is no fracture of the foot. Patient had received a dose of 1 mg of IM Dilaudid. She states that seemed to help with her pain, she rate her pain after that a 6-7 out of 10. Splint was placed as described below. Patient had good capillary refill, she had improvement in her comfort. We will go ahead and discharge the patient home. A prescription was sent to [facility] for Percocet 5/325 #20 that she is taking every 4-6 hours. As the patient is being discharged the nurse did ask me if a prescription have been written or if her prescription had been sent. I informed him that had been sent. There is no indication on the note that a prescription have been written. I did look myself was able see it in the chart. I did call and verify with the pharmac y that prescription had been sent. I was informed that they have a prescription of that the prescription itself is ready. Procedure: Splint placement. A posterior and stirrup splint was applied. After application of the splint I re-examined the patient. The splint was adequately immobilizing the joint and distal to the splint the patient's circulation and sensation was intact. Decision to Disposition Date: Jan 16, 2018 Decision to Disposition Time: 12:26 Depart Departure Latest Vital Signs Vital Signs Date Time Temp Pulse Resp B/P (MAP) Pulse Ox O2 Delivery O2 Flow Rate FiO2 01/16/18 11:30 98.4 74 18 107/66 93 Room Air Impression: Primary Impression: Trimalleolar fracture of ankle, closed Condition: Improved Disposition: HOME OR SELF-CARE Referrals: SAMI BLANKENSHIP NP (PCP) MICHELE CRUZ MD Patient Instructions: Ankle Fracture (ED) Additional Instructions: Limit activity by pain. Ice the ankle through the splint; 2-3 times a day for 20-30 minutes. If the splint is feeling too tight you may loosen the joya wrap and rewrap it. Follow up with [facility], call tomorrow to make an appointment. Keep the splint dry, wrap it with a bag and tape to keep the water out. Return to the ER with uncontrollable pain or numbness to the foot. You may take Ibuprofen as needed for pain in addition to the pain medication. Don't take any additional Tylenol while on the pain medication. Problem Qualifiers Primary Impression: Trimalleolar fracture of ankle, closed Encounter type: initial encounter Laterality: left Qualified Codes: S82.852A - Displaced trimalleolar fracture of left lower leg, initial encounter for closed fracture MAXIMO WRIGHT Jan 16, 2018 11:34
[2018-01-16] MEDS ORDERED: HYDROMORPHONE HCL 1 MG/ML SYRINGE IM ONE (11:35)
[2018-01-16] MEDS ORDERED: OXYC-865 PO (12:27)
[2018-01-16] MEDS ORDERED: ARIP10TA4 PO (12:37)
--- NOTE | 2018-01-16 12:48 | RADIOLOGY IMAGING REPORT ---
FACILITY: [facility] PATIENT NAME: Johnna Perez : 1990 MR: [id number] V: [id number] EXAM DATE: ORDERING PHYSICIAN: MAXIMO WRIGHT TECHNOLOGIST: Location: [facility] [place] Patient: Johnna Perez : 1990 Visit/Account:[id number] Date of Sevice: 01/16/2018 FOOT 3 VIEW LEFT, ANKLE 3 VIEW MIN LEFT Indication: Left foot and ankle pain after fall. Comparison: None Available Findings: 3 views of the left foot and left ankle were obtained. There is non-/fracture the distal left fibula and the medial malleolus. On the lateral view of the ankle there is a mildly displaced fracture the p osterior malleolus. Syndesmosis appears to be intact. The talus shows no indication of fracture or tony ny lesion. No other indication of fracture to ankle or foot. No dislocations, bony lesions or periost eal abnormality. Soft tissues show swelling. No radiopaque foreign body. IMPRESSION: 1. Trimalleolar fracture of the left ankle. No fracture of the left foot. Report Dictated By: Zackery Vital at 01/16/2018 12:29 PM Report E-Signed By: Zackery Vital at 01/16/2018 12:44 PM WSN:[id number]
--- NOTE | 2018-01-16 12:48 | RADIOLOGY IMAGING REPORT ---
FACILITY: [facility] PATIENT NAME: Johnna Perez : 1990 MR: [id number] V: [id number] EXAM DATE: ORDERING PHYSICIAN: MAXIMO WRIGHT TECHNOLOGIST: Location: [facility] [place] Patient: Johnna Perez : 1990 Visit/Account:[id number] Date of Sevice: 01/16/2018 FOOT 3 VIEW LEFT, ANKLE 3 VIEW MIN LEFT Indication: Left foot and ankle pain after fall. Comparison: None Available Findings: 3 views of the left foot and left ankle were obtained. There is non-/fracture the distal left fibula and the medial malleolus. On the lateral view of the ankle there is a mildly displaced fracture the p osterior malleolus. Syndesmosis appears to be intact. The talus shows no indication of fracture or tony ny lesion. No other indication of fracture to ankle or foot. No dislocations, bony lesions or periost eal abnormality. Soft tissues show swelling. No radiopaque foreign body. IMPRESSION: 1. Trimalleolar fracture of the left ankle. No fracture of the left foot. Report Dictated By: Zackery Vital at 01/16/2018 12:29 PM Report E-Signed By: Zackery Vital at 01/16/2018 12:44 PM WSN:[id number]
[2018-01-16] MEDS ORDERED: ONDANSETRON 4 MG ODT TABDP SL ONE (13:05)
== END 2018-01-16 13:51 | disposition home or self-care (01) ==
LOC: ER 11:44
DX: S82.852A Displaced trimalleolar fracture of left lower leg, initial encounter for closed fracture (principal); W10.9XXA Fall (on) (from) unspecified stairs and steps, initial encounter
CPT/HCPCS: 29515; 73610; 73630; 96372; 99284; J1170; S0119

== ENCOUNTER 2018-01-18 19:54 | Emergency (ER) | payer BC ==
[2014-12-15 14:50] VITALS: Wt 90.7 kg
[~2018-01-18 19:54] MED LIST changes: +OXYC-865 PO
--- NOTE | 2018-01-18 20:00 | ER Report ---
History and Physical Time Seen By MD: 20:00 HPI/ROS CHIEF COMPLAINT: Pain HISTORY OF PRESENT ILLNESS: 27-year-old female presents via wheelchair complaining of severe left ankle pain. She suffered a trimalleolar fracture on 03/18/17. She was placed in a posterior and stirrup splint. She's been keeping it elevated and taking Vicodin which was prescribed. It was not providing adequate pain relief. She called back and was advised to take some ibuprofen. She scheduled for surgery next Wednesday or Wednesday Allergies: Coded Allergies: pineapple (Verified Allergy, Mild, 01/18/18) tree nut (Verified Allergy, Unknown, 01/18/18) Home Meds Reported Medications Oxycodone Hcl/Acetaminophen (PERCOCET 5-325 MG TABLET) 1 Each Tablet, 1 EACH PO Q46H, TAB 01/18/18 Aripiprazole (ABILIFY) 10 Mg Tablet, 10 MG PO QDAY, TAB 01/16/18 [place] Carbonate (LITHIUM CARBONATE) 300 Mg Tablet, 1200 MG PO QHS 12/06/17 Vitamin E Mixed (VITAMIN E) 100 Unit Tablet, PO 12/04/17 Cholecalciferol (Vitamin D3) (VITAMIN D3) 1,000 Unit Tablet, 4000 UNIT PO DAILY, TAB 12/04/17 Discontinued Reported Medications Psyllium Husk/Aspartame (METAMUCIL FIBER SINGLES PACKET) 3.4 Gm Powd.pack, 3.4 GM PO DAILY 12/06/17 Bisacodyl (DULCOLAX) 5 Mg Tablet.dr, 5 MG PO QHS PRN for CONSTIPATION 12/06/17 [place] Carbonate (LITHIUM CARBONATE) 450 Mg Tabcr, 450 MG PO QHS Take a total of 750mg of [place] QHS. 12/06/17 Discontinued Scripts Oxycodone Hcl/Acetaminophen (PERCOCET 5-325 MG TABLET) 1 Each Tablet, 1 EACH PO Q4-6H PRN for PAIN, #20 TAB Prov:MAXIMO WRIGHT 01/16/18 Reviewed Nurses Notes: Yes Old Medical Records Reviewed: Yes Hx Smoking: No Smoking Status: Never Smoker Exposure to Second Hand Smoke?: No Hx Substance Use Disorder: No Hx Alcohol Use: Yes Constitutional Vital Sign - Last 24 Hours 01/18/18 20:02 Temp 97.9 Pulse 100 Resp 16 B/P (MAP) 137/86 Pulse Ox 94 O2 Delivery Room Air Physical Exam General appearance: Moderate distress, vital signs stable, afebrile, pulse ox normal Respiratory: Chest is non tender, lungs are clear to auscultation. Cardiac: Regular rate and rhythm Extremities: Examination of left lower extremity reveals a posterior splint with a stirrup splint. There is poor capillary refill in the toes. The entire splint is removed. Ankle soft tissue swelling and a little bit of ecchymosis. Digits are neurovascularly intact Patient reports much improvement after the splints removed. DIFFERENTIAL DIAGNOSIS: After history and physical exam differential diagnosis was considered for cast pain, compression injury, ankle swelling, and adequate pain control Medical Decision Making ED Course/Re-evaluation ED Course Patient was admitted to an examination room. H&P was done. The differential diagnoses was considered. On clinical examination. Patient has poor capillary refill. She may have had excessive swelling underneath the splint. She feels much better after this been released. And she is medicated for pain. Her splint is reapplied. She feels much better. There is twice the amount of padding as previously was noted there. She is advised to increase her hydrocodone to 1-2 tablets every 4-6 hours as needed for pain relief, not to exceed 8 tablets in 24 hours. Decision to Disposition Date: Jan 18, 2018 Decision to Disposition Time: 20:48 Depart Departure Latest Vital Signs Vital Signs Date Time Temp Pulse Resp B/P (MAP) Pulse Ox O2 Delivery O2 Flow Rate FiO2 01/18/18 20:02 97.9 100 16 137/86 94 Room Air Impression: Primary Impression: Closed trimalleolar fracture of left ankle Condition: Improved Disposition: HOME OR SELF-CARE Referrals: [facility] (PCP) Patient Instructions: Ankle Fracture (ED) Additional Instructions: Keep elevated, apply ice bags to reduce swelling Follow-up with orthopedics planned next week Problem Qualifiers Primary Impression: Closed trimalleolar fracture of left ankle Encounter type: initial encounter Qualified Codes: S82.852A - Displaced trimalleolar fracture of left lower leg, initial encounter for closed fracture TAHIRA FITZGERALD DO Jan 18, 2018 20:00
[2018-01-18] MEDS ORDERED: OXYC-865 PO (20:01)
[2018-01-18 20:02] VITALS: BP 137/86
[2018-01-18] MEDS ORDERED: PROMETHAZINE HCL 25 MG TAB PO ONE (20:10)
[2018-01-18] MEDS ORDERED: HYDROmorphone HCL 2 MG TAB PO ONE (20:10)
== END 2018-01-18 21:20 | disposition home or self-care (01) ==
LOC: ER 20:10
DX: S82.852A Displaced trimalleolar fracture of left lower leg, initial encounter for closed fracture (principal)
CPT/HCPCS: 99283; Q0169